=== PATIENT | male | born 1970 | race Caucasian/White ===

== ENCOUNTER 2022-12-26 08:52 | Outpatient (CLI) | payer OTHER, SELFPAY ==
[2022-12-26 14:45] LABS: Chloride* 100 mmol/L (96-114); Potassium* 4.1 mmol/L (3.6-5.1); Sodium* 141 mmol/L (135-149)
[2022-12-26 14:47] LABS: Cholesterol* 155 mg/dL (90-199); Estimated Glomerular Filt Rate 90 ml/min
[2022-12-26 14:48] LABS: Blood Urea Nitrogen* 25 mg/dL (7-30); Calcium* 9.9 mg/dL (8.4-10.6); Carbon Dioxide* 30 mmol/L (20-32); Glucose* 122 mg/dL (60-115); HDL Cholesterol* 39 mg/dL (>=40); LDL Cholesterol Calculated 79 mg/dL (<100); Triglycerides* 185 mg/dL (40-149)
== END 2022-12-26 08:53 | disposition home or self-care (01) ==
PROVIDERS: PCP Family Medicine; Visit Provider Family Medicine
DX: I10 Essential (primary) hypertension (principal); E78.5 Hyperlipidemia, unspecified
CPT/HCPCS: 80048; 80061

== ENCOUNTER 2023-10-24 07:50 | Outpatient (CLI) | payer OTHER, SELFPAY ==
--- NOTE | 2023-10-24 09:28 | W.ANESCHARGE ---
Anesthesia Charges Start Date/Time Anesthesia Start Date: 10/24/23 Anesthesia Start Time: 08:50 Stop Date/Time Anesthesia Stop Date: 10/24/23 Anesthesia Stop Time: 09:25
--- NOTE | 2023-10-24 12:11 | W.ANESCHARGE ---
Anesthesia Charges Start Date/Time Anesthesia Start Date: 10/24/23 Anesthesia Start Time: 08:50 Stop Date/Time Anesthesia Stop Date: 10/24/23 Anesthesia Stop Time: 09:25
== END 2023-10-24 07:51 | disposition home or self-care (01) ==
LOC: OP CLINIC 07:51
PROVIDERS: PCP Family Medicine; Visit Provider Surgery
DX: Z12.11 Encounter for screening for malignant neoplasm of colon (principal); Z80.0 Family history of malignant neoplasm of digestive organs
CPT/HCPCS: 00811; 00812; 45378; J2704

== ENCOUNTER 2024-01-15 08:29 | Outpatient (CLI) | payer OTHER, SELFPAY | END 2024-01-15 08:30 | disposition home or self-care (01) | PROVIDERS: PCP Family Medicine; Visit Provider Family Medicine | DX: E78.2 Mixed hyperlipidemia (principal); Z12.5 Encounter for screening for malignant neoplasm of prostate | CPT/HCPCS: 80048; 80061; G0103 ==

== ENCOUNTER 2025-01-20 10:27 | Outpatient (CLI) | payer OTHER, SELFPAY | END 2025-01-20 10:28 | disposition home or self-care (01) | PROVIDERS: PCP Family Medicine; Visit Provider Family Medicine | DX: E78.2 Mixed hyperlipidemia (principal); I10 Essential (primary) hypertension | CPT/HCPCS: 80048; 80061 ==

== ENCOUNTER 2025-01-30 17:04 | Emergency (ER) | payer OTHER, SELFPAY ==
--- OUTSIDE RECORDS SUMMARY | 2025-01-30 17:06 | XMS_ITS | Clinical Summary ---
Author Organization [facility] Address [address] [place] [address] Care Team Providers Care Podiatric Assistant Name Role Phone Unavailable Primary Care Provider Unavailabl e Source Comments You are receiving this document as you are listed as the primary care provider,follow-up provider, or the patient has been referred to you for consultation.This is in compliance with the Medicare andMedicaid EHR Incentive Program,which states Providers who transition their patient to another setting of careor provider of care or refers their patient to another provider of care shouldprovide summary care record for each transition of care or referral. [facility] Allergies No known active allergies Medications simvastatin (ZOCOR) 40 MG tablet Take 1 Tablet (40 mg) by mouth daily at bedtime. 12/10/2022 Active metFORMIN (GLUCOPHAGE) 1000 MG tablet Take 1 Tablet (1,000 mg) by mouth two times a day. 12/10/2022 Active lisinopril (ZESTRIL) 40 MG tablet Take 1 Tablet (40 mg) by mouth daily. 12/10/2022 Active chlorthalidone (HYGROTON) 25 MG tablet Take 1 Tablet (25 mg) by mouth daily. 12/10/2022 Active Social History Tobacco Use Types Packs/Day Years Used Date Smoking Tobacco: Never Assessed Sex and Gender Information Value Date Recorded Sex Assigned at Not on file Legal Sex Male 8:42 AM CDT Gender Identity Not on file Sexual Orientation Not on file Last Filed Vital Signs Vital Sign Reading Time Taken Comments Blood Pressure 127/80 02/24/2023 9:39 AM CDT Pulse 96 02/24/2023 9:39 AM CDT Temperature 37.1 C (98.8 F) 02/24/2023 9:39 AM CDT Respiratory Rate 18 02/24/2023 9:39 AM CDT Oxygen Saturation 97% 02/24/2023 9:39 AM CDT Inhaled Oxygen Concentration - - Weight - - Height - - Body Mass Index - - Plan of Treatment Health Maintenance Due Date Last Done Comments Colon Cancer Screening Plan Due 1969 Hep C Screening (Preventive Services) 1969 PSA Screening Discussion 1969 HIV Screening (Preventive Services) 1985 Adult Preventive Visit 1987 HepB (1) 1988 Cholesterol 2004 Pneumococcal 50+ Yrs (2 of 2 - PCV) 2019 04/10/2007 Zoster/Shingles (1 of 2) 2019 COVID-19 Vaccine (4 - season) 2024 10/12/2021, 02/27/2021, 02/06/2021 Influenza (#1) 2024 12/31/2019, 08/13, 10/16/2013, Additional history exists DTaP/Tdap/Td (3 - Tdap) 08/17/2024 08/17/2014, 04/10 HepA Aged Out No longer eligi ble based on patient's age to complete this topic Hib Aged Out No longer eligi ble based on patient's age to complete this topic IPV (Polio) Aged Out No longer eligi ble based on patient's age to complete this topic MCV4 Aged Out No longer eligi ble based on patient's age to complete this topic Meningococcal B Aged Out No longer el igible based on patient's age to complete this topic
[2025-01-30 17:41] VITALS: BP 149/64; PULSE 101; RESP 18; TEMP 36.8; O2SAT 97; BMI 41.5
--- NOTE | 2025-01-30 17:54 | CRLHL7_ITS ---
For Patients: As a result of the Century Cures Act, medical imaging exams and procedure reports are released immediately into your electronic medical record. You may view this report before your referring provider. If you have questions, please contact your health care provider. TECHNIQUE: Multiplanar CT examination of the cervical spine was performed without the use of intravenous contrast. INDICATION: Neck pain. Trauma. COMPARISON: None. FINDINGS: Nonspecific straightening of the normal cervical lordosis. No craniocervical dissociation. The vertebral body heights are maintained. No acute fractures or traumatic subluxation. The odontoid process is intact. Degenerative disc disease throughout the cervical spine. Grade 1 degenerative anterolisthesis C2-C3. Mild multilevel facet degeneration. No high-grade canal or neural foraminal stenosis at any cervical spinal level. No large abnormal epidural collections. No significant prevertebral soft tissue edema. The visualized lung apices are clear. The thyroid gland is unremarkable. IMPRESSION: 1. No acute fracture or traumatic subluxation of the cervical spine. 2. Mild anterolateral spondylosis Please note that all CT scans at this facility use dose modulation, iterative reconstruction, and/or weight-based dosing when appropriate to reduce radiation dose to as low as reasonably achievable. Dictated by Nelson Gómez MD @ 01/30/2025 7:01:59 PM (Electronically Signed)
--- NOTE | 2025-01-30 17:54 | CRLHL7_ITS ---
For Patients: As a result of the Century Cures Act, medical imaging exams and procedure reports are released immediately into your electronic medical record. You may view this report before your referring provider. If you have questions, please contact your health care provider. TECHNIQUE: Multiplanar CT examination of the head was performed without the use of intravenous contrast. INDICATION: Trauma. COMPARISON: None. FINDINGS: No loss of lantigua-white differentiation to suggest recent territorial infarct. No intracranial hemorrhage, abnormal extra-axial fluid collection, hydrocephalus or midline shift. 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 The ventricles and cerebral sulci are normal in caliber. The basal cisterns are patent. The paranasal sinuses and mastoid air cells remain clear. The orbits and calvarium are unremarkable. The cerebellar tonsils are normal position. IMPRESSION: 1. No intracranial hemorrhage or midline shift. No acute skull fractures. 2. 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 Please note that all CT scans at this facility use dose modulation, iterative reconstruction, and/or weight-based dosing when appropriate to reduce radiation dose to as low as reasonably achievable. Dictated by Nelson Gómez MD @ 01/30/2025 6:55:53 PM (Electronically Signed)
--- NOTE | 2025-01-30 19:01 | ED_ITS ---
HPI - Head Injury General Chief complaint: Head Injury/Pain Stated complaint: Head trauma Time Seen by Provider: 01/30/25 17:55 History of Present Illness HPI Narrative: This 54-year-old male comes in with a head injury. 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 He accidentally dislodged the wedge himself and realize that the gate was closing in on him so he tried did duck to avoid getting hit but the gait hit him in the head and wedged his head between the gate and the bed of the truck. There were people nearby that helped him immediately to release him from being stuck in this position. He did not have loss of consciousness. He states that he had a headache initially but really does not have any headache now. He has an abrasion that is superficial behind his right ear and some mild erythema with mild swelling on the opposite side of his head, the left upper part of his forehead. Related Data Home Medications ?Medication ?Instructions ?Recorded ?Confirmed aspirin 81 mg tablet,delayed 81 mg PO QDAY 12/26/22 01/30/25 release (Adult Aspirin Regimen) Previous Rx's ?Medication ?Instructions ?Recorded chlorthalidone 25 mg tablet 25 mg PO DAILY #90 tabs 01/20/25 lisinopril 40 mg tablet 40 mg PO DAILY #90 tabs 01/20/25 metformin 1,000 mg tablet 1,000 mg PO BIDWMEAL #180 tabs 01/20/25 simvastatin 40 mg tablet 40 mg PO .Bedtime #90 tabs 01/20/25 dulaglutide 0.75 mg/0.5 mL 0.75 mg (0.5 mL) subcut QWEEK #2 mL 01/21/25 subcutaneous pen injector (Trulicity) Allergies Allergy/AdvReac Type Severity Reaction Status Date / Time No Known Allergies Allergy Unknown Unknown Verified 01/30/25 17:48 Review of Systems Status of ROS: Reports: 10 or more systems reviewed and unremarkable except as noted in History and below Narrative: Constitutional: No fevers, no weight gain or loss. Eyes: No discharge. No vision changes. HENT: No congestion, no sore throat, no ear pain. Cardiovascular: No chest pain, no palpitations. Respiratory: No shortness of breath, no wheezes, no cough. Gastrointestinal: No abdominal pain, no vomiting, no diarrhea. Genitourinary: No dysuria, no hematuria. Musculoskeletal: Normal range of motion. Skin: No rashes, no pruritis. Neurological: No dizziness, weakness, sensory change, speech change. Endo/Heme/Allergies: No bruising or bleeding. No polydipsia. Pysch: no suicidality, no anxiety, no insomnia. All other systems reviewed and are negative. PFSH PFSH Family History Other Colon cancer Social History Smoking Status: Never smoker Exam Narrative: Exam Narrative: Constitutional: Well-developed, well-nourished, no acute distress. HEENT: Superficial abrasion behind his right ear. Small swelling with mild erythema in the left upper forehead. Neck: Normal range of motion. Nontender. Supple. Heart: Regular. No murmurs. Normal rate. Intact distal pulses. Lungs: Clear to auscultation. No chest discomfort. No wheezes, rhonchi, or rales. Abdomen: Normal bowel sounds. Nontender. No rebound tenderness. Genitalia: Deferred. Back: No midline tenderness. Normal range of motion. Extremities: Normal range of motion. No injury. Skin: Intact. No rash. Warm. No erythema or pallor. Neurologic: No altered sensation. No weakness. Alert and oriented. No facial asymmetry. Tongue is midline. [id number] is normal. No pronator drift. Dishwashing Machine Repairer strength is equal bilaterally. Able to raise each leg from the bed. Psychiatric: No suicidality. No anxiety or depression. No insomnia. Nursing notes and vitals signs are reviewed. Const: Vital Signs, click to edit/add: Vital Signs - 24 hr 01/30/25 17:41 Temperature 98.3 F Pulse Rate [Right Pulse Oximeter] 101 H Respiratory Rate 18 Blood Pressure [Ri ght Upper Arm] 149/64 H Pulse Oximetry 97 Oxygen Delivery Me thod Room Air Course Vital Signs Vital signs: Initial Vital Signs Temperature 98.3 F 01/30/25 17:41 Temperature Source Temporal Artery Scan 01/30/25 17:41 Pulse Rate 101 H 01/30/25 17:41 Pulse Rhythm Regular 01/30/25 17:41 Pulse Strength 3+ Normal 01/30/25 17:41 Respiratory Rate 18 01/30/25 17:41 Blood Pressure 149/64 H 01/30/25 17:41 Blood Pressure Mean 92 01/30/25 17:41 Blood Pressure Position Sitting 01/30/25 17:41 Pulse Oximetry 97 01/30/25 17:41 Oxygen Delivery Method Room Air 01/30/25 17:41 Vital Signs Temperature 98.3 F 01/30/25 17:41 Pulse Rate 101 H 01/30/25 17:41 Respiratory Rate 18 01/30/25 17:41 Blood Pressure 149/64 H 01/30/25 17:41 Pulse Oximetry 97 01/30/25 17:41 Oxygen Delivery Method Room Air 01/30/25 17:41 Temperature 98.3 F 01/30/25 17:41 Pulse Rate 101 H 01/30/25 17:41 Respiratory Rate 18 01/30/25 17:41 Blood Pressure 149/64 H 01/30/25 17:41 Pulse Oximetry 97 01/30/25 17:41 Oxygen Delivery Method Room Air 01/30/25 17:41 MDM - Head Injury MDM Narrative Medical decision making narrative: This patient comes in for evaluation of head injury. CT scan of the head and C- spine is obtained and shows no acute findings. There is no sign of fracture or bleed or malalignment. The patient states that he is feeling better and really does not have much discomfort currently. He is okay to be discharged home and plans to use [id number] medicines if needed for symptomatic relief. Imaging Data CT scan - head: Radiologist's impression: 1. No intracranial hemorrhage or midline shift. No acute skull fractures. 2. 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 CT Cervical Spine: Radiologist's impression: 1. No acute fracture or traumatic subluxation of the cervical spine. 2. Mild anterolateral spondylosis Discharge Plan Discharge Clinical Impression: Closed head injury Patient Disposition: Home w/ Parent or Adult Condition: Stable Additional Instructions: Use [id number] medicines as needed and directed. Increase activity as tolerated. Follow up with MD return if worsening. Prescriptions: No Action aspirin [Adult Aspirin Regimen] 81 mg tablet,delayed release (DR/EC) 81 mg PO QDAY chlorthalidone 25 mg tablet 25 mg PO DAILY Qty: 90 3RF lisinopril 40 mg tablet 40 mg PO DAILY Qty: 90 3RF metformin 1,000 mg tablet 1,000 mg PO BIDWMEAL Qty: 180 3RF simvastatin 40 mg tablet 40 mg PO .Bedtime Qty: 90 3RF Trulicity 0.75 mg/0.5 mL pen injector 0.75 mg subcut QWEEK Qty: 2 0RF Follow Up/Referrals: Tacos Garcia MD [Primary Care Provider] - Stand Alone Forms: [facility] Info Instructions
--- OUTSIDE RECORDS SUMMARY | 2025-01-30 19:18 | XMS_ITS | Clinical Summary ---
Author Organization [facility] Address [address] [place] [address] Care Team Providers Care Machine Grinder Name Role Phone Unavailable Primary Care Provider [...] for each transition of care or referral. [employer] Allergies No known active allergies Medications simvastatin [...]
== END 2025-01-30 19:23 | disposition home or self-care (01) ==
LOC: ED 19:16
PROVIDERS: Emergency Provider Emergency Medicine Emergency Medical Services; PCP Family Medicine
DX: S09.90XA Unspecified injury of head, initial encounter (principal); W31.89XA Contact with other specified machinery, initial encounter; Y99.0 Civilian activity done for income or pay
CPT/HCPCS: 70450; 72125; 99283; 99284